=== PATIENT | female | born 1965 | race Caucasian/White ===

== ENCOUNTER 2019-05-04 23:39 | Emergency (ER) | payer BC, SELFPAY ==
[2019-05-04 23:40] VITALS: BP 127/82; PULSE 82; RESP 16; TEMP 36.6; O2SAT 99; BMI 20.7
--- NOTE | 2019-05-05 00:20 | ED.DCSUM_ITS ---
History of Present Illness Chief Complaint: Abd Pain Narrative: Patient is a 53-year-old female who presents with abdominal pain. It began yesterday morning about 7 AM. She describes as cramping. Is is intermittent and waxes and wanes. Her pain usually lasts about 10 seconds at a time. It is all located in the epigastric region. At the time of my history and exam she has no pain. Mild nausea without vomiting. No fevers. No diarrhea. No history of prior similar symptoms. She has not noted any specific exacerbating or relieving factors. No abdominal surgeries. She denies medical history. Past Medical History - Allergies and Home Meds Allergies/Adverse Reactions: Allergies No Known Allergies Allergy (Verified 05/04/19 23:40) Primary Care Physician: Elyssa Walters MD [Primary Care Provider] - Past Medical History: None Surgical History: no surgical history Smoking Status: Never smoker Review of Systems All systems negative except as indicated General: Denies: Fever Cardiovascular: Denies: Chest pain Respiratory: Denies: Dyspnea Gastrointestinal: Reports: Abdominal pain, Nausea. Denies: Vomiting, Diarrhea Physical Exam Vital Signs/Narrative: Vital Signs Temp Pulse Resp BP Pulse Ox 05/04/19 23:40 97.9 F 82 16 127/82 H 99 Inital Vital Signs reviewed: Yes General: Well nourished, Well developed Head: Normocephalic Eyes: EOMI ENT: Moist mucous membranes Neck: Supple Cardiovascular: Regular rate, Regular rhythm Respiratory: No distress, CTA bilaterally Abdomen: Soft, Tender - Mild epigastric abdominal tenderness, no guarding, no rebound, nondistended, negative Vela's sign Skin: Normal color Neurological: Alert Psychological: Normal affect Diagnostic/Tx/Re-eval Laboratory Results 05/05/19 05/05/19 01:00 01:00 WBC 6.8 RBC 4.95 Hgb 14.8 Hct 43.6 MCV 88.1 MCH 29.9 MCHC 33.9 RDW Std Deviation 38.4 RDW Coeff of Brianne 12.0 Plt Count 189 MPV 10.9 Immature Gran % (Auto) 0.100 Neut % (Auto) 78.3 H Lymph % (Auto) 10.5 L Hopkins % (Auto) 8.6 Eos % (Auto) 2.4 Baso % (Auto) 0.1 Absolute Neuts (auto) 5.3 Absolute Lymphs (auto) 0.71 L Nucleated RBC % 0 Sodium 140 Potassium 3.0 L Chloride 103 Carbon Dioxide 31.0 Anion Gap 6 BUN 17 Creatinine 0.90 Estim Creat Clear Calc 55.18 Est GFR (MDRD) Af Amer 84 Est GFR (MDRD) Non-Af 69 BUN/Creatinine Ratio 18.8 Glucose 111 H Calcium 10.0 Total Bilirubin 0.60 AST 18 ALT 35 Alkaline Phosphatase 68 Total Protein 7.5 Albumin 3.8 Globulin 3.7 Albumin/Globulin Ratio 1.0 Lipase 81 - Medical Decision Making Patient was treated here with IV fluids, Toradol, Zofran. Labs are unremarkable except potassium of 3.0. She was given oral potassium. I discussed the possibility of biliary colic. However her presentation and laboratory findings are not suggestive of acute cholecystitis and I do not see an indication for emergent ultrasound although she was advised to follow-up as an outpatient. She does understand return for new or worsening symptoms and was instructed on specific signs and symptoms to monitor for. She is agreeable to this plan. She was discharged. ED Disposition - Plan for ED Patient: Disposition: Home or Assisted Living Diagnosis: Abdominal pain Instructions: BILIARY COLIC with Gallstone (Presumed) Referrals: Elyssa Walters MD [Primary Care Provider] - Shakira Martinez MD [STAFF PHYSICIAN] -
[2019-05-05] MEDS: Ondansetron 4 MG/2 ML Vial IV (01:00)
[2019-05-05] MEDS: 0.9% Normal Saline 1,000 ML 1000 ML IV (01:00)
[2019-05-05] MEDS: Ketorolac 30 MG/ML Syringe IV (01:00)
[2019-05-05 01:10] LABS: Absolute Lymphocyte Count 0.71 X10^3/uL (0.83-4.51); Absolute Neutrophil Count 5.3 X10^3/uL (2.0-7.7); Basophil# 0.01 X10^3/uL; Basophil% 0.1 % (0-1); Eosinophil# 0.16 X10^3/uL; Eosinophils% 2.4 % (0-5); Hematocrit 43.6 % (37-47); Hemoglobin 14.8 g/dL (12.0-15.0); Lymphocyte # 0.71 X10^3/ul (4.0); Lymphocyte % 10.5 % (19-41); Mean Corp Hgb Conc 33.9 g/dL (32-36); Mean Corpuscular Hgb 29.9 pg (27.0-32.0); Mean Corpuscular Volume 88.1 fL (81-99); Mean Platelet Vol. 10.9 fl (6.2-12.0); Monocyte# 0.58 X10^3/uL; Monocyte% 8.6 % (0-10); NRBC Flagged by Analyzer 0 % (0-5); Neutrophil # 5.28 X10^3/uL (2.7-7.7); Neutrophil % 78.3 % (47-70); Platelet Count 189 K/mm3 (150-450); RBC Distribution Width SD 38.4 fl (35.1-43.9); Red Blood Count 4.95 M/mm3 (4.2-5.4); White Blood Count 6.8 K/mm3 (4.4-11.0)
[2019-05-05 01:33] LABS: AST(SGOT) 18 U/L (15-37); Alanine Aminotransfer ALT/SGPT 35 U/L (13-56); Albumin, Serum 3.8 g/dL (3.2-5.0); Alkaline Phosphatase 68 U/L (45-117); Anion Gap 6 (5-15); BUN 17 mg/dL (7-18); BUN/Creat Ratio 18.8 RATIO (10-20); Chloride 103 mmol/L (98-107); EST Glomerular Filtration Rate 69 mL/min (>60); Est Glom Filt Rate - Afr Amer 84 mL/min (>60); Estimated Creatinine Clearance 55.18 ml/min; Globulin 3.7 g/dL (2.2-4.2); Glucose 111 mg/dL (74-106); Lipase 81 U/L (73-393); Protein, Total 7.5 g/dL (6.4-8.2); Sodium Level 140 mmol/L (136-145)
[2019-05-05 02:36] VITALS: BP 118/82; PULSE 72; RESP 16; O2SAT 100
== END 2019-05-05 02:37 | disposition home or self-care (01) ==
PROVIDERS: Emergency Provider Emergency Medicine; Family Provider Family Medicine; PCP Family Medicine
DX: R10.13 Epigastric pain (principal); R11.0 Nausea
CPT/HCPCS: 80053; 83690; 85025; 96361; 96374; 96375; 99284; J7030; J2405

== ENCOUNTER 2020-03-21 10:14 | Emergency (ER) | payer BC, SELFPAY ==
[2020-03-21 10:16] VITALS: BP 130/79; PULSE 67; RESP 18; TEMP 36.2; O2SAT 100; BMI 21.7
--- NOTE | 2020-03-21 10:36 | EKG12_ITS ---
Test Reason : CP Blood Pressure : / mmHG Vent. Rate : 068 BPM Atrial Rate : 068 BPM P-R Int : 150 ms QRS Dur : 088 ms QT Int : 424 ms P-R-T Axes : 071 064 054 degrees QTc Int : 450 ms Normal sinus rhythm with sinus arrhythmia Possible Left atrial enlargement Borderline ECG Confirmed by TELLY LOMBARDI, ROSIE ([id number]), health editor YVONNE INTERIANO ([id number]) on 03/24/2020 1:15:28 PM Referred By: LEONILA Confirmed By:ROSIE VARNER MD
--- NOTE | 2020-03-21 10:40 | ED.VISSUMM ---
- ER Visit Summary Date of Service: 03/21/20 Chief Complaint: Chest pain History of Present Illness: The patient is a [address] Walters. She reports that approximately an hour and a half ago while undergoing light activity at work she had the onset of an aching left-sided chest pain. It is constant. There are times where it is sharp. Is 5-10 currently and at worst. Is worsened by nothing including exertion, movement, or breathing. Is also relieved by nothing. There is no radiation. No associated nausea, vomiting, diaphoresis or shortness of breath. Patient has family history is her only coronary risk factor. She denies any personal family history of DVT. No recent travel. No ankle swelling or calf pain. Physical Examination: Vitals: Stable. Afebrile. General: Well-nourished and well-developed. Head: Normocephalic atraumatic. Neck: Supple, no lymphadenopathy. No JVD. Nontender. Cardiovascular: Regular rate and rhythm. No murmurs. Respiratory: No respiratory distress. Clear to auscultation bilaterally. Mild tenderness palpation over the left costochondral margin that does not reproduce her pain. Abdominal: Soft, nontender, nondistended, normal bowel sounds. No guarding, rebound, or peritoneal signs. Back: Nontender. Extremities: Nontender, no edema. Skin: Normal color, no rash. Neurologic: Alert and oriented ?3. Cranial nerves II through XII are intact. Normal strength and sensation. Psych: Normal affect. Test Results: EKG is sinus at [address] changes. CBC shows a white count of 4.2. Chem-7 is normal. Troponin is negative. Chest x-ray shows no acute disease. Repeat EKG is unchanged. Repeat troponin is negative. Emergency Department Course and Treatment: Patient had an IV placed. She was given aspirin. She is resting comfortably and refused pain medications. Treatment Plan: Patient feels well would like to go home. She will be discharged instructions to follow-up with Dr. Walters in 3 to 5 days. Return to the emergency department for any worsening symptoms. Disposition: To home in improved and stable condition. Impression: 1. Atypical chest pain. 2. YANCY score of 0. 3. Heart score of 2. This note was generated with [employer] software. It may contain incorrect words, spelling, and punctuation that were not noted in review of the chart prior to signing ED Disposition - Plan for ED Patient: Instructions: ED Chest Pain Atypical Unkn Cause Referrals: Elyssa Walters MD [Primary Care Provider] - 3-5 Days
[2020-03-21] MEDS: Aspirin 81 MG TAB.CHEW 324 MG PO (10:43)
[2020-03-21] MEDS: 0.9% Normal Saline 1,000 ML 150 ML IV (10:44)
[2020-03-21 10:48] VITALS: O2SAT 98
--- NOTE | 2020-03-21 11:01 | RAD_ITS ---
STUDY: X-RAY CHEST REASON FOR EXAM: Female, 54 years old. CHEST PAIN TECHNIQUE: Single AP portable view of the chest. COMPARISON: None. FINDINGS: EKG electrodes are seen. Hyperinflation. The lungs are clear. There is no demonstrated pleural abnormality. Normal size heart. Normal mediastinum and chris. Normal visualized pulmonary arteries. Normal visualized aortic arch and descending thoracic aorta. Normal visualized thoracic spine. Normal visualized ribs, clavicles, and shoulders. There is no demonstrated abnormality of the visualized soft tissue structures of the upper abdomen. RAD/Chest 1 View (Portable) IMPRESSION: No acute abnormality is seen. Electronically Signed: Garry Otto, at 11:11 EDT , Service support ,
[2020-03-21 11:03] LABS: Absolute Lymphocyte Count 1.03 X10^3/uL (0.83-4.51); Absolute Neutrophil Count 2.6 X10^3/uL (2.0-7.7); Basophil# 0.01 X10^3/uL; Basophil% 0.2 % (0-1); Eosinophil# 0.14 X10^3/uL; Eosinophils% 3.3 % (0-5); Hematocrit 41.4 % (37-47); Hemoglobin 13.5 g/dL (12.0-15.0); Lymphocyte # 1.03 X10^3/ul (4.0); Lymphocyte % 24.5 % (19-41); Mean Corp Hgb Conc 32.6 g/dL (32-36); Mean Corpuscular Hgb 29.7 pg (27.0-32.0); Mean Platelet Vol. 11.2 fl (6.2-12.0); Monocyte# 0.43 X10^3/uL; Monocyte% 10.2 % (0-10); NRBC Flagged by Analyzer 0 % (0-5); Neutrophil # 2.58 X10^3/uL (2.7-7.7); Neutrophil % 61.6 % (47-70); Platelet Count 185 K/mm3 (150-450); RBC Distribution Width CV 12.4 % (11.6-14.6); RBC Distribution Width SD 40.9 fl (35.1-43.9); Red Blood Count 4.55 M/mm3 (4.2-5.4); White Blood Count 4.2 K/mm3 (4.4-11.0)
[2020-03-21 11:15] LABS: Anion Gap 4 (5-15); BUN 15 mg/dL (7-18); BUN/Creat Ratio 16.2 RATIO (10-20); Calcium,Total 9.5 mg/dL (8.5-10.1); Chloride 105 mmol/L (98-107); Creatinine, Serum 0.92 mg/dL (0.55-1.02); EST Glomerular Filtration Rate 67 mL/min (>60); Est Glom Filt Rate - Afr Amer 82 mL/min (>60); Estimated Creatinine Clearance 53.36 ml/min; Glucose 83 mg/dL (74-106); Potassium 3.5 mmol/L (3.5-5.1); Sodium Level 140 mmol/L (136-145)
--- NOTE | 2020-03-21 11:28 | EKG12_ITS ---
Test Reason : REPEAT EKG Blood Pressure : / mmHG Vent. Rate : 065 BPM Atrial Rate : 065 BPM P-R Int : 150 ms QRS Dur : 082 ms QT Int : 444 ms P-R-T Axes : 074 069 057 degrees QTc Int : 461 ms Normal sinus rhythm Normal ECG Confirmed by TELLY LOMBARDI, ROSIE ([id number]), online content editor YVONNE INTERIANO ([id number]) on 03/24/2020 1:15:42 PM Referred By: LEONILA Confirmed By:ROSIE VARNER MD
[2020-03-21 12:07] VITALS: BP 128/80; PULSE 65; RESP 16; O2SAT 100
[2020-03-21 13:51] VITALS: BP 114/73; PULSE 74; RESP 18; O2SAT 100
[2020-03-21 14:34] VITALS: BP 114/73; PULSE 74; RESP 16; O2SAT 100
== END 2020-03-21 14:38 | disposition home or self-care (01) ==
PROVIDERS: Emergency Provider Emergency Medicine; PCP Family Medicine
DX: R07.89 Other chest pain (principal)
CPT/HCPCS: 36415; 71045; 80048; 84484; 85025; 93005; 96360; 96361; 99284; J7030

== ENCOUNTER → 2020-04-09 11:49 | Outpatient (CLI) | payer BC, SELFPAY ==
[2020-03-21 10:16] VITALS: BMI 21.7
--- NOTE | 2020-04-09 11:52 | RAD_ITS ---
STUDY: X-RAY - ABDOMEN/PELVIS REASON FOR EXAM: Female, 54 years old. abdominal pain and bloating TECHNIQUE: AP supine and upright views of the abdomen and pelvis. COMPARISON: None. FINDINGS: Normal visualized lung bases. There is an unremarkable bowel gas pattern. There is no demonstrated free abdominal air. The visualized liver, spleen and kidneys are grossly normal in size and morphology. Normal soft tissue structures. Normal visualized osseous structures. RAD/Abd Inc Decub and/or Erect IMPRESSION: Normal x-ray examination of the abdomen and pelvis. Electronically Signed: Gus Crowley MD at 12:11 EDT Tel , Service support ,
[2020-04-09 15:15] LABS: Absolute Neutrophil Count 2.4 X10^3/uL (2.0-7.7); Basophil# 0.02 X10^3/uL; Basophil% 0.5 % (0-1); Eosinophil# 0.14 X10^3/uL; Eosinophils% 3.7 % (0-5); Hematocrit 43.7 % (37-47); Hemoglobin 13.8 g/dL (12.0-15.0); Lymphocyte % 23.5 % (19-41); Mean Corp Hgb Conc 31.6 g/dL (32-36); Mean Corpuscular Hgb 29.4 pg (27.0-32.0); Mean Corpuscular Volume 93.2 fL (81-99); Mean Platelet Vol. 11.6 fl (6.2-12.0); Monocyte# 0.36 X10^3/uL; Monocyte% 9.4 % (0-10); NRBC Flagged by Analyzer 0 % (0-5); Neutrophil % 62.6 % (47-70); Platelet Count 215 K/mm3 (150-450); RBC Distribution Width CV 12.1 % (11.6-14.6); RBC Distribution Width SD 41.3 fl (35.1-43.9); Red Blood Count 4.69 M/mm3 (4.2-5.4); White Blood Count 3.8 K/mm3 (4.4-11.0)
[2020-04-09 15:28] LABS: Erythrocyte Sedimentation Rate 6 mm/hr (0-30)
[2020-04-09 15:45] LABS: ALB/GLOB Ratio 1.1 RATIO (0.9-2.4); AST(SGOT) 17 U/L (15-37); Alanine Aminotransfer ALT/SGPT 30 U/L (13-56); Albumin, Serum 4.2 g/dL (3.2-5.0); Alkaline Phosphatase 61 U/L (45-117); Anion Gap 4 (5-15); BUN 13 mg/dL (7-18); BUN/Creat Ratio 14.5 RATIO (10-20); Calcium,Total 9.3 mg/dL (8.5-10.1); Chloride 104 mmol/L (98-107); EST Glomerular Filtration Rate 70 mL/min (>60); Est Glom Filt Rate - Afr Amer 84 mL/min (>60); Globulin 3.9 g/dL (2.2-4.2); Glucose 75 mg/dL (74-106); Protein, Total 8.1 g/dL (6.4-8.2); Sodium Level 140 mmol/L (136-145); Thyroid Stim Hormone (TSH) 0.73 uIU/mL (0.358-3.74)
[2020-04-11 09:09] LABS: H. Pylori Antibody (IgG) 0.61 (0.00-0.79)
[2020-04-13 08:08] LABS: Beef 0.12 kU/L (Class 0/I); Corn <0.10 kU/L (Class 0); Egg, Whole <0.10 kU/L (Class 0); Milk (Cow) <0.10 kU/L (Class 0); Peanut <0.10 kU/L (Class 0); Pork <0.10 kU/L (Class 0); Soybean <0.10 kU/L (Class 0); Wheat <0.10 kU/L (Class 0)
[2020-04-13 08:57] LABS: Chocolate <0.10 kU/L (Class 0)
== END ==
PROVIDERS: PCP Family Medicine; Referring Provider Family Medicine; Visit Provider Family Medicine
DX: R10.9 Unspecified abdominal pain (principal)
CPT/HCPCS: 36415; 74019; 80053; 84443; 85025; 85652; 86003; 86005; 86677

== ENCOUNTER → 2020-04-19 10:14 | Outpatient (CLI) | payer BC, SELFPAY ==
[2020-03-21 10:16] VITALS: BMI 21.7
--- NOTE | 2020-04-19 10:19 | US_ITS ---
STUDY: ABDOMINAL ULTRASOUND - RIGHT UPPER QUADRANT REASON FOR VISIT: Female, 54 years old RUQ PAIN, NAUSEA AND DIARRHEA AFTER EATING. TECHNIQUE: Ultrasound evaluation of the right upper quadrant was performed with real-time and static adames-scale imaging. TECHNICAL QUALITY: Adequate. COMPARISON: None. FINDINGS: Liver: The liver measures 16 cm. There is normal echogenicity of the liver. The bile ducts are within normal limits. There is hepatic color flow. The direction of portal flow is hepatopetal. There is no demonstrated mass lesion. Gallbladder: Normal distended gallbladder. The gallbladder wall measures 1 mm. There is a negative sonographic Vela''s sign. There is no pericholecystic fluid. There are no gallstones. Common Bile Duct (C.B.D.): The common bile duct measures 3 mm. Pancreas: There is no demonstrated pancreatic mass or cyst. Right Kidney: Normal size of the right kidney. The right kidney measures 9.5 x 5.3 x 3.4 cm. Normal renal cortex. The right cortex measures 1.3 cm. There is no demonstrated renal mass or cyst. There is no right hydronephrosis. US/Abdomen Limited IMPRESSION: Normal right upper quadrant ultrasound examination. Electronically Signed: Doc Thomas MD (Brooks) at 9:49 EDT , Service support ,
== END ==
LOC: US 10:16
PROVIDERS: PCP Family Medicine; Referring Provider Family Medicine; Visit Provider Family Medicine
DX: R10.9 Unspecified abdominal pain (principal)
CPT/HCPCS: 76705

== ENCOUNTER → 2020-06-18 16:22 | Outpatient (CLI) | payer BC, SELFPAY ==
[2020-06-18 18:15] LABS: CRP < 2.90 mg/L (0.0-3.0)
[2020-06-20 16:08] LABS: Endomysial Antibody IgA Negative (Negative); Immunoglobulin A 84 mg/dL (87-352)
[2020-06-21 13:06] LABS: t-Transglutaminase IgA <2 U/mL (0-3)
== END ==
PROVIDERS: PCP Family Medicine; Referring Provider Internal Medicine Gastroenterology; Visit Provider Internal Medicine Gastroenterology
DX: R19.7 Diarrhea, unspecified (principal)
CPT/HCPCS: 36415; 82784; 83516; 86140; 86255

== ENCOUNTER → 2020-06-27 11:20 | Outpatient (CLI) | payer BC, SELFPAY ==
[2020-06-29 08:08] LABS: Immunoglobulin G 1160 mg/dL (586-1602)
[2020-06-29 08:37] LABS: Immunoglobulin A 82 mg/dL (87-352)
== END ==
PROVIDERS: PCP Family Medicine; Referring Provider Internal Medicine Gastroenterology; Visit Provider Internal Medicine Gastroenterology
DX: K58.0 Irritable bowel syndrome with diarrhea (principal)
CPT/HCPCS: 36415; 82784

== ENCOUNTER → 2020-10-31 15:31 | Outpatient (CLI) | payer BC, SELFPAY | PROVIDERS: PCP Family Medicine; Referring Provider Internal Medicine Gastroenterology; Visit Provider Internal Medicine Gastroenterology | DX: R19.7 Diarrhea, unspecified (principal) | CPT/HCPCS: 36415; 83516 ==